=== PATIENT | female | born 1955 | race Caucasian/White ===

== ENCOUNTER 2025-01-21 05:50 | Day surgery (SDC) | payer MEDICARE ==
[2025-01-14 14:56] VITALS: BP 143/72
[~2025-01-21] VITALS: Ht 172.7 cm; Wt 100.0 kg
[~2025-01-21 05:50] MED LIST: B COMPLEX1 EACH PO; CALCIUM500 MG PO; FISH OIL 1,0001 EAC8 PO; LACTATED RINGER'S 1,000 ML IV SCH; MULTI VITAMIN1 EACH PO; VITAMIN E100 UNI2 PO
[2025-01-21 06:04] VITALS: BP 133/71
[2025-01-21] MEDS ORDERED: LIDOCAINE HCL 1% 5 ML SDV INJ ONE (07:00)
[2025-01-21] MEDS ORDERED: IBLOOD GLUCOSE TEST STRIP 1 EA TEST VI PRN (07:00)
--- NOTE | 2025-01-21 07:15 | NUR ---
VISITED DURING SPIRITUAL CARE ROUNDS. PT IN OVERALL GOOD SPIRITS, SUPPORTED BY FAMILY FRIEND IN ROOM. NO IMMEDIATE NEEDS. WORKERS COMPENSATION SPECIALIST PROVIDED SUPPORTIVE PRESENCE, HOSPITALITY, PRAYER, FACILITATED INTERACTION WITH THERAPY ANIMAL. PT AND FRIEND EXPRESSED GRATITUDE, KULWANT.
[2025-01-21] MEDS ORDERED: LIDOCAINE 1% W/ EPI 1:200,000 30 ML SDV ONE (08:58)
--- NOTE | 2025-01-21 09:19 | NUR ---
01/21/25 09 Mary Kate Mock 0908-PT ARRIVES TO PACU, VIA STRETCHER, PT AWAKENS EASILY TO VOICE BUT DROWSY, DENIES PAIN OR NAUSEA, PT ENCOURAGED TO PASS GAS, PT FALLS BACK TO SLEEP EASILY, VSS ON RA, RR EVEN AND UNLABORED. PT RESTING ON LT SIDE. 09- AT BEDSIDE TO DISCUSS PROCEDURE RESULTS AND PLAN OF CARE W/ PT, ALL QUESTIONS ANSWERED.
[2025-01-21] MEDS ORDERED: ACETAMINOPHEN 1,000 MG/100 ML VIAL IV ONE (10:00)
[2025-01-21 10:08] VITALS: BP 165/64
--- NOTE | 2025-01-21 11:20 | NUR ---
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 SHE INDICATES THAT HER HEADACHE IS PRETTY MUCH GONE AND SHE IS NO LONGER NAUSEATED. SHE WOULD LIKE TO GET UP TO USE THE BATHROOM AND WORK ON GETTING DRESSED. SHE IS ASSISTED UP TO THE EDGE OF THE BED, NO LIGHTHEADEDNESS, DIZZINESS, OR NAUSEA. SHE IS ABLE TO AMBULATE TO THE BATHROOM WITH STANDBY ASSIST.
[2025-01-21 11:30] VITALS: BP 190/81
--- NOTE | 2025-01-21 11:58 | NUR ---
1008 PT BACK TO DS FROM PACU REPORTS HEADACHE AND SOME NAUSEA BUT PT ASKING FOR CRACKERS, PT TOLERATES CRACKERS AND WATER WELL. PT REPORTS BEING VERY TIRED. PT AMBULATES TO BATHROOM WITH OUT ASSIST PT ABLE TO PASS GAS SITTING ON TOILET. PT AMBULATED BACK TO HER ROOM PT TUCKED BACK INTO BED WARM BLANKETS PLACED ON PT CALL LIGHT WITH IN REACH 1100 PT ASLEEP RESTING COMFORTABLY 1130 PT AWAKE AND ALERT. REPORTS HEADACHE IS BETTER NOT GONE BUT BETTER. PT AMBULATES TO BATHROOM WITHOUT ASSIST. DISCHARGE INSTRUCTIONS GIVEN TO PT SHE VOICED UNDERSTANDING, PT ABLE TO DRESS HERSELF.
== END 2025-01-21 11:40 | disposition home or self-care (01) ==
LOC: OPS 05:50 → DS 05:50 → OPS 07:30 → DS 07:30 → OPS 11:40
PROVIDERS: ATTEND Surgery
PROC: 0DBN8ZX Excision of Sigmoid Colon, Via Natural or Artificial Opening Endoscopic, Diagnostic (ICD-10-PCS; 2025-01-21)
PROC: 0DBH8ZX Excision of Cecum, Via Natural or Artificial Opening Endoscopic, Diagnostic (ICD-10-PCS; 2025-01-21)
PROC: 0DB48ZX Excision of Esophagogastric Junction, Via Natural or Artificial Opening Endoscopic, Diagnostic (ICD-10-PCS; 2025-01-21)
PROC: 0DB78ZX Excision of Stomach, Pylorus, Via Natural or Artificial Opening Endoscopic, Diagnostic (ICD-10-PCS; 2025-01-21)
PROC: 0DB38ZX Excision of Lower Esophagus, Via Natural or Artificial Opening Endoscopic, Diagnostic (ICD-10-PCS; 2025-01-21)
PROC: 0DBK8ZX Excision of Ascending Colon, Via Natural or Artificial Opening Endoscopic, Diagnostic (ICD-10-PCS; principal; 2025-01-21 07:30)
PROC: 0DBL8ZX Excision of Transverse Colon, Via Natural or Artificial Opening Endoscopic, Diagnostic (ICD-10-PCS; 2025-01-21 07:30)
DX: Z12.11 Encounter for screening for malignant neoplasm of colon (principal); K63.5 Polyp of colon; K21.9 Gastro-esophageal reflux disease without esophagitis; K29.60 Other gastritis without bleeding; K44.9 Diaphragmatic hernia without obstruction or gangrene; Q43.8 Other specified congenital malformations of intestine; Z86.0101 Personal history of adenomatous and serrated colon polyps; Z86.0102 Personal history of hyperplastic colon polyps; Z91.018 Allergy to other foods
CPT/HCPCS: 00813; 36415; 87077; J0131; J2704